=== PATIENT | male | born 1980 | race Two or more races ===

== ENCOUNTER 2018-11-07 22:30 | Emergency (ER) | payer MEDICAID ==
[2018-11-07 22:37] VITALS: BP 139/100
[2018-11-07] MEDS ORDERED: OLANZapine ZYDIS ODT 5MG TABDP PO ONE (22:45)
[2018-11-07] MEDS ORDERED: GABA-490 PO (22:45)
[2018-11-07] MEDS ORDERED: OLAN10TA21 PO (22:45)
[2018-11-07] MEDS ORDERED: BUPR-474 PO (22:45)
--- NOTE | 2018-11-07 22:53 | ER Report ---
History and Physical Time Seen By MD: 22:30 Hx. of Stated Complaint: PT REPORTS HAS BEEN OFF OF HIS MEDICATIONS FOR A COUPLE OF DAYS. PT HAVING VISUAL AND AUDITORY HALLUCINATIONS. HPI/ROS CHIEF COMPLAINT: I'm paranoid and hearing voices HISTORY OF PRESENT ILLNESS: PT state that he has a 10 year hx of bipolar and schizoaffective disorder. Pt states that he has been off his medications. Took his last zyprexa a few nights ago. Has not had his neurontin and was off his welbutrin for a week but found one pill and took it today. PT states he feels very paranoid. Pt admits to hearing whispers that he can not recognize. Does not feel safe. Does not have a suicidal or homicidal plan. Pt admits to abuse of alcohol, cocaine and meth in the past. Last use of meth and cocaine was a week or so ago. Pt is from [place] but lives here now. Pt had a therapist but not local. Came her for help REVIEW OF SYSTEMS: Constitutional:no fevers Eyes: No discharge. ENT: No sore throat. Cardiovascular: No chest pain, no palpitations. Respiratory: No cough, no shortness of breath. Gastrointestinal: No abdominal pain, no vomiting. Genitourinary: No hematuria. Musculoskeletal: No back pain. Skin: No rashes. Neurological: No headache. Psych: + paranoid, aggitated Allergies: Coded Allergies: No Known Drug Allergies (Unverified , 11/07/18) Home Meds Reported Medications Gabapentin (NEURONTIN) 300 Mg Capsule, 600 MG PO TID, CAPSULE 11/07/18 Bupropion Hcl (WELLBUTRIN XL) 300 Mg Tab.er.24h, 300 MG PO QDAY, TAB 11/07/18 Olanzapine (ZYPREXA) 10 Mg Tablet, 10 MG PO HS 11/07/18 Past Medical/Surgical History Pmhx: schizoaffective, bipolar Pshx; no contribuitory Unable To Obtain Past Medical: Refused Reviewed Nurses Notes: Yes Hx Smoking: No Hx Substance Use Disorder: Yes (meth and cocaine) Hx Alcohol Use: Yes Constitutional Vital Sign - Last 24 Hours 11/07/18 22:37 Temp 99.7 Pulse 111 Resp 16 B/P (MAP) 139/100 Pulse Ox 97 O2 Delivery Room Air Physical Exam General Appearance: The patient is alert, has no immediate need for airway protection, pacing around room Eyes: Pupils equal and round no pallor or injection, EOMI ENT: no pharyngeal erythema or exudates, Mucous membranes are moist Respiratory: There are no retractions, lungs are clear to auscultation. Cardiovascular: Regular rate and rhythm. pulses are equal and symmetrical Gastrointestinal: Abdomen is soft and non tender, no masses, bowel sounds normal, no guarding, no rigidity or rebound Neurological: Cranial nerves II-XII grossly intact, no sensory or motor loss Skin: Warm and dry, no rashes. Musculoskeletal: Neck is supple non tender, no vertebral tenderness Extremities are nontender, non swollen and have full range of motion. Psych: anxious DIFFERENTIAL DIAGNOSIS: After history and physical exam differential diagnosis was considered for medication non compliance, substance abuse, paranoid schizoaffective Medical Decision Making Data Points Result Diagram: 11/07/185 11/07/185 Laboratory Hematology Test 11/07/18 22:39 11/07/18 22:55 Urine Color Colorless Urine Clarity Clear Urine pH 6.0 pH (4.8-9.5) Urine Specific [place] 1.001 Urine Protein Negative mg/dL (NEGATIVE) Urine Glucose (UA) Negative mg/dL (NEGATIVE) Urine Ketones Negative mg/dL (NEGATIVE) Urine Blood Negative (NEGATIVE) Urine Nitrite Negative (NEGATIVE) Urine Bilirubin Negative (NEGATIVE) Urine Urobilinogen Negative mg/dL (0.2-1.9) Urine Leukocyte Esterase Negative (NEGATIVE) Urine RBC None /HPF (0-2/HPF) Urine WBC <1 /HPF (0-5/HPF) Urine Squamous Epithelial Cells None /LPF (</=FEW) Urine Bacteria Negative /HPF (NONE-FEW) Urine Mucus None /HPF (NONE-FEW) Red Blood Count 4.78 M/uL (4.00-5.60) Mean Corpuscular Volume 95.8 fL (80.0-96.0) Mean Corpuscular Hemoglobin 33.1 pg (26.0-33.0) Mean Corpuscular Hemoglobin Concent 34.6 g/dL (32.0-36.0) Red Cell Distribution Width 14.1 % (11.5-14.5) Mean Platelet Volume 9.4 fL (7.2-11.1) Neutrophils (%) (Auto) 61.6 % (39.4-72.5) Lymphocytes (%) (Auto) 29.8 % (17.6-49.6) Monocytes (%) (Auto) 6.6 % (4.1-12.4) Eosinophils (%) (Auto) 0.9 % (0.4-6.7) Basophils (%) (Auto) 1.1 % (0.3-1.4) Nucleated RBC Relative Count (auto) 0.1 /100WBC Neutrophils # (Auto) 5.6 K/uL (2.0-7.4) Lymphocytes # (Auto) 2.7 K/uL (1.3-3.6) Monocytes # (Auto) 0.6 K/uL (0.3-1.0) Eosinophils # (Auto) 0.1 K/uL (0.0-0.5) Basophils # (Auto) 0.1 K/uL (0.0-0.1) Nucleated RBC Absolute Count (auto) 0.01 K/uL Sodium Level 133 mmol/L (137-145) Potassium Level 3.3 mmol/L (3.5-5.0) Chloride Level 100 mmol/L (98-107) Carbon Dioxide Level 22 mmol/L (22-30) Blood Urea Nitrogen 11 mg/dl (9-21) Creatinine 0.80 mg/dl (0.66-1.25) Glomerular Filtration Rate Calc > 60.0 Random Glucose 97 mg/dl (75-110) Calcium Level 9.2 mg/dl (8.4-10.2) Magnesium Level 1.6 mg/dl (1.7-2.2) Total Bilirubin 0.6 mg/dl (0.2-1.3) Aspartate Amino Transf (AST/SGOT) 33 U/L (0-35) Alanine Aminotransferase (ALT/SGPT) 44 U/L (0-56) Alkaline Phosphatase 75 U/L (0-126) Total Protein 7.4 g/dl (6.3-8.2) Albumin 4.6 g/dl (3.5-5.0) Salicylates Level < 10 mg/L Salicylate Last Dose Date unknown Urine Opiates Screen Negative Acetaminophen Level < 10 ug/ml Urine Barbiturates Screen Negative Ur Tricyclic Antidepressants Screen Negative Urine Phencyclidine Screen Negative Urine Amphetamines Screen Negative Urine Benzodiazepines Screen Negative Urine Cocaine Screen Negative Urine Cannabinoids Screen Negative Serum Alcohol < 10 mg/dl Chemistry Test 11/07/18 22:39 11/07/18 22:55 Urine Color Colorless Urine Clarity Clear Urine pH 6.0 pH (4.8-9.5) Urine Specific [place] 1.001 Urine Protein Negative mg/dL (NEGATIVE) Urine Glucose (UA) Negative mg/dL (NEGATIVE) Urine Ketones Negative mg/dL (NEGATIVE) Urine Blood Negative (NEGATIVE) Urine Nitrite Negative (NEGATIVE) Urine Bilirubin Negative (NEGATIVE) Urine Urobilinogen Negative mg/dL (0.2-1.9) Urine Leukocyte Esterase Negative (NEGATIVE) Urine RBC None /HPF (0-2/HPF) Urine WBC <1 /HPF (0-5/HPF) Urine Squamous Epithelial Cells None /LPF (</=FEW) Urine Bacteria Negative /HPF (NONE-FEW) Urine Mucus None /HPF (NONE-FEW) White Blood Count 9.1 k/uL (4.5-11.0) Red Blood Count 4.78 M/uL (4.00-5.60) Hemoglobin 15.8 g/dL (14.0-18.0) Hematocrit 45.8 % (42.0-52.0) Mean Corpuscular Volume 95.8 fL (80.0-96.0) Mean Corpuscular Hemoglobin 33.1 pg (26.0-33.0) Mean Corpuscular Hemoglobin Concent 34.6 g/dL (32.0-36.0) Red Cell Distribution Width 14.1 % (11.5-14.5) Platelet Count 120 K/uL (150-450) Mean Platelet Volume 9.4 fL (7.2-11.1) Neutrophils (%) (Auto) 61.6 % (39.4-72.5) Lymphocytes (%) (Auto) 29.8 % (17.6-49.6) Monocytes (%) (Auto) 6.6 % (4.1-12.4) Eosinophils (%) (Auto) 0.9 % (0.4-6.7) Basophils (%) (Auto) 1.1 % (0.3-1.4) Nucleated RBC Relative Count (auto) 0.1 /100WBC Neutrophils # (Auto) 5.6 K/uL (2.0-7.4) Lymphocytes # (Auto) 2.7 K/uL (1.3-3.6) Monocytes # (Auto) 0.6 K/uL (0.3-1.0) Eosinophils # (Auto) 0.1 K/uL (0.0-0.5) Basophils # (Auto) 0.1 K/uL (0.0-0.1) Nucleated RBC Absolute Count (auto) 0.01 K/uL Glomerular Filtration Rate Calc > 60.0 Calcium Level 9.2 mg/dl (8.4-10.2) Magnesium Level 1.6 mg/dl (1.7-2.2) Total Bilirubin 0.6 mg/dl (0.2-1.3) Aspartate Amino Transf (AST/SGOT) 33 U/L (0-35) Alanine Aminotransferase (ALT/SGPT) 44 U/L (0-56) Alkaline Phosphatase 75 U/L (0-126) Total Protein 7.4 g/dl (6.3-8.2) Albumin 4.6 g/dl (3.5-5.0) Salicylates Level < 10 mg/L Salicylate Last Dose Date unknown Urine Opiates Screen Negative Acetaminophen Level < 10 ug/ml Urine Barbiturates Screen Negative Ur Tricyclic Antidepressants Screen Negative Urine Phencyclidine Screen Negative Urine Amphetamines Screen Negative Urine Benzodiazepines Screen Negative Urine Cocaine Screen Negative Urine Cannabinoids Screen Negative Serum Alcohol < 10 mg/dl Toxicology Test 11/07/18 22:55 Salicylates Level < 10 mg/L Salicylate Last Dose Date unknown Urine Opiates Screen Negative Acetaminophen Level < 10 ug/ml Urine Barbiturates Screen Negative Ur Tricyclic Antidepressants Screen Negative Urine Phencyclidine Screen Negative Urine Amphetamines Screen Negative Urine Benzodiazepines Screen Negative Urine Cocaine Screen Negative Urine Cannabinoids Screen Negative Serum Alcohol < 10 mg/dl Urinalysis Test 11/07/18 22:39 Urine Color Colorless Urine Clarity Clear Urine pH 6.0 pH (4.8-9.5) Urine Specific [place] 1.001 Urine Protein Negative mg/dL (NEGATIVE) Urine Glucose (UA) Negative mg/dL (NEGATIVE) Urine Ketones Negative mg/dL (NEGATIVE) Urine Blood Negative (NEGATIVE) Urine Nitrite Negative (NEGATIVE) Urine Bilirubin Negative (NEGATIVE) Urine Urobilinogen Negative mg/dL (0.2-1.9) Urine Leukocyte Esterase Negative (NEGATIVE) Urine RBC None /HPF (0-2/HPF) Urine WBC <1 /HPF (0-5/HPF) Urine Squamous Epithelial Cells None /LPF (</=FEW) Urine Bacteria Negative /HPF (NONE-FEW) Urine Mucus None /HPF (NONE-FEW) ED Course/Re-evaluation ED Course Check labs, medicate and have bhs come down to see pt 11/07/2018 11:22:03 pm Pts magnesium and potassium are low, will replace. S is here to speak with pt. Pt is medically cleared for psych 11/07/2018 11:48:[address] Worthington accepts pt. Pt signed in voluntarily Decision to Disposition Date: Nov 07, 2018 Decision to Disposition Time: 23:48 Depart Departure Latest Vital Signs Vital Signs Date Time Temp Pulse Resp B/P (MAP) Pulse Ox O2 Delivery O2 Flow Rate FiO2 11/07/18 22:37 99.7 111 16 139/100 97 Room Air Impression: Primary Impression: Paranoid schizophrenia Additional Impressions: Nonadherence to medication Hypomagnesemia Hypokalemia Condition: Condition Unchanged Disposition: XFER TO [facility] Problem Qualifiers EDUARDO STILL DO Nov 07, 2018 22:53
[2018-11-07 23:07] LABS: PLATELET COUNT, AUTOMATED 120 K/uL (150-450)
[2018-11-07] MEDS ORDERED: MAGNESIUM OXIDE 400 MG TAB PO ONE (23:20)
[2018-11-07] MEDS ORDERED: POTASSIUM CHL 20 MEQ TABCR PO ONE (23:20)
[2018-11-07] MEDS ORDERED: LORazepam 1 MG TAB PO ONE (23:40)
[2018-11-09] MEDS ORDERED: BUPR-474 PO (11:12)
== END 2018-11-08 00:08 ==
LOC: ER 22:35
DX: F20.0 Paranoid schizophrenia (principal); E83.42 Hypomagnesemia; E87.6 Hypokalemia; T43.596A Underdosing of other antipsychotics and neuroleptics, initial encounter; F15.90 Other stimulant use, unspecified, uncomplicated; F14.90 Cocaine use, unspecified, uncomplicated
CPT/HCPCS: 36415; 80305; 81001; 83735; 84443; 85025; 99283; G0480; 80320; 80329; 82040; 82247; 82310; 82374; 82435; 82565; 82947; 84075; 84132; 84155; 84295; 84450; 84460; 84520

== ENCOUNTER 2018-11-07 23:47 | Inpatient (IN) | payer MEDICAID ==
[~2018-11-07 23:47] MED LIST: BUPR-474 PO; GABA-490 PO; OLAN10TA21 PO
[2018-11-08 00:15] VITALS: BP 138/89
[2018-11-08] MEDS ORDERED: ACETAMINOPHEN 325 MG TAB PO PRN (05:10)
[2018-11-08] MEDS ORDERED: MAG HYD/AL HYD/SIMETH 30ML UDC PO PRN (05:10)
[2018-11-08] MEDS ORDERED: LORazepam 1 MG TAB PO PRN (05:10)
[2018-11-08] MEDS ORDERED: NICOTINE INH SYSTEM 10 MG/INH INH PRN (05:10)
[2018-11-08] MEDS: MULTIVITAMINS PO SCH (08:28)
[2018-11-08] MEDS ORDERED: LORazepam 1 MG TAB PO ONE (11:00)
[2018-11-08] MEDS ORDERED: GABAPENTIN 300 MG CAP PO ONE (11:00)
[2018-11-08] MEDS ORDERED: OLANZapine 5 MG TAB PO ONE (11:00)
[2018-11-08] MEDS ORDERED: OLANZapine 5 MG TAB PO SCH (21:00)
[2018-11-08] MEDS: GABAPENTIN 300 MG CAP PO SCH (21:00)
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
[2018-11-08 22:18] VITALS: BP 131/89
[2018-11-09 06:55] VITALS: BP 123/84
[2018-11-09] MEDS: GABAPENTIN 300 MG CAP PO SCH (08:51)
[2018-11-09] MEDS: MULTIVITAMINS PO SCH (08:51)
[2018-11-09] MEDS ORDERED: buPROPion XL 150 MG TABCR PO SCH (09:00)
[2018-11-09] MEDS ORDERED: BUPR-474 PO (11:12)
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
== END 2018-11-09 11:39 | disposition home or self-care (01) | DRG 885 ==
LOC: BHS 23:47
PROVIDERS: ADMIT Psychiatry & Neurology Psychiatry; ATTEND Psychiatry & Neurology Psychiatry
DX: F25.0 Schizoaffective disorder, bipolar type (principal); F15.20 Other stimulant dependence, uncomplicated; F14.20 Cocaine dependence, uncomplicated; F10.20 Alcohol dependence, uncomplicated; Y90.0 Blood alcohol level of less than 20 mg/100 ml; Z91.14 Patient's other noncompliance with medication regimen; Z91.5 Personal history of self-harm

== ENCOUNTER 2018-11-17 14:20 | Emergency (ER) | payer MEDICAID ==
[2018-11-17 14:24] VITALS: BP 95/77
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
[2018-11-18] MEDS ORDERED: BUPR-474 PO (10:36)
[2018-11-18] MEDS ORDERED: OLAN10TA21 PO (10:36)
== END 2018-11-17 15:04 ==
LOC: ER 14:37 → MERGE 14:37 → ER 15:04
DX: F10.920 Alcohol use, unspecified with intoxication, uncomplicated (principal); F32.9 Major depressive disorder, single episode, unspecified
CPT/HCPCS: 99281

== ENCOUNTER 2018-11-18 10:24 | Emergency (ER) | payer MEDICAID ==
[~2018-11-18 10:24] MED LIST changes: -NIC10R INH; -NICOTROL CARTRIDGE PO; -OLAN15TA19 PO
--- NOTE | 2018-11-18 10:32 | ER Report ---
History and Physical Time Seen By : 10:31 HPI/MARCO CHIEF COMPLAINT: Alcohol withdrawal HISTORY OF PRESENT ILLNESS: He was initially seen yesterday for police clearance for halfway. Patient was at a truck stop and apparently was irritating customers and when asked to leave he did not the police was called. He was not cooperative and arrested. He was brought to the emergency department yesterday for clearance due to alcohol intoxication. Patient admits to history of depression. Patient states that he drinks to help control symptoms of his bipolar disorder as he is off all of his medications. He states that he voluntarily wants to come in for alcohol treatment. He currently denies any suicidal ideation or homicidal ideation. REVIEW OF SYSTEMS: Constitutional: No fever, no chills. Eyes: No discharge. ENT: No sore throat. Cardiovascular: No chest pain, no palpitations. Respiratory: No cough, no shortness of breath. Gastrointestinal: No abdominal pain, no vomiting. Genitourinary: No hematuria. Musculoskeletal: No back pain. Skin: No rashes. Neurological: No headache. Allergies: Coded Allergies: No Known Drug Allergies (Unverified , 11/18/18) Home Meds Reported Medications Olanzapine (ZYPREXA) 10 Mg Tablet, 10 MG PO QDAY 11/18/18 Bupropion Hcl (WELLBUTRIN XL) 300 Mg Tab.er.24h, 300 MG PO QDAY, TAB 11/18/18 Past Medical/Surgical History History of depression; history of alcohol abuse, history of bipolar disorder Hx Smoking: Yes Hx Alcohol Use: Yes Constitutional Vital Sign - Last 24 Hours 11/18/18 11/18/18 11/18/18 11/18/18 10:24 10:26 10:27 10:30 Temp 98.0 Pulse 82 77 Resp 20 B/P (MAP) 135/91 (106) 135/91 131/97 (108) Pulse Ox 95 O2 Delivery Room Air 11/18/18 11/18/18 11/18/18 11/18/18 10:44 11:00 11:04 11:24 Pulse 92 94 103 Resp 10 20 12 B/P (MAP) 131/99 (110) Pulse Ox 95 92 93 11/18/18 11/18/18 11/18/18 11/18/18 11:30 11:44 12:00 12:04 Pulse 101 90 Resp 20 19 B/P (MAP) 118/79 (92) 120/79 (93) Pulse Ox 96 94 11/18/18 11/18/18 11/18/18 12:09 12:29 12:30 Pulse 112 83 Resp 15 23 B/P (MAP) 115/71 (86) Pulse Ox 93 Physical Exam General Appearance: The patient is alert, has no immediate need for airway protection and no signs of toxicity. Eyes: Pupils equal and round no pallor or injection. ENT, Mouth: Mucous membranes are moist. Respiratory: There are no retractions, lungs are clear to auscultation. Cardiovascular: Regular rate and rhythm. Gastrointestinal: Abdomen is soft and non tender, no masses, bowel sounds normal. Neurological: Awake and alert, anxious appearing Skin: Warm and dry, no rashes. Musculoskeletal: Neck is supple non tender. Extremities are nontender, nonswollen and have full range of motion. Psychiatric: No suicidal or homicidal ideation, thought process is logical and goal-directed Medical Decision Making Data Points Result Diagram: 11/18/18 1048 11/18/18 1048 Laboratory Hematology Test 11/18/18 10:39 11/18/18 10:48 Urine Color Yellow Urine Clarity Clear Urine pH 7.0 pH (4.8-9.5) Urine Specific [place] 1.019 Urine Protein Negative mg/dL (NEGATIVE) Urine Glucose (UA) Negative mg/dL (NEGATIVE) Urine Ketones Negative mg/dL (NEGATIVE) Urine Blood Negative (NEGATIVE) Urine Nitrite Negative (NEGATIVE) Urine Bilirubin Negative (NEGATIVE) Urine Urobilinogen 4.0 mg/dL (0.2-1.9) Urine Leukocyte Esterase Negative (NEGATIVE) Urine RBC <1 /HPF (0-2/HPF) Urine WBC <1 /HPF (0-5/HPF) Urine Squamous Epithelial Cells Few /LPF (</=FEW) Urine Bacteria Negative /HPF (NONE-FEW) Urine Mucus None /HPF (NONE-FEW) Urine Opiates Screen Negative Urine Barbiturates Screen Negative Ur Tricyclic Antidepressants Screen Negative Urine Phencyclidine Screen Negative Urine Amphetamines Screen Negative Urine Benzodiazepines Screen Negative Urine Cocaine Screen Negative Urine Cannabinoids Screen Negative Red Blood Count 4.92 M/uL (4.00-5.60) Mean Corpuscular Volume 95.4 fL (80.0-96.0) Mean Corpuscular Hemoglobin 33.1 pg (26.0-33.0) Mean Corpuscular Hemoglobin Concent 34.7 g/dL (32.0-36.0) Red Cell Distribution Width 13.7 % (11.5-14.5) Mean Platelet Volume 8.8 fL (7.2-11.1) Neutrophils (%) (Auto) 51.8 % (39.4-72.5) Lymphocytes (%) (Auto) 35.5 % (17.6-49.6) Monocytes (%) (Auto) 10.5 % (4.1-12.4) Eosinophils (%) (Auto) 1.9 % (0.4-6.7) Basophils (%) (Auto) 0.3 % (0.3-1.4) Nucleated RBC Relative Count (auto) 0.0 /100WBC Neutrophils # (Auto) 4.0 K/uL (2.0-7.4) Lymphocytes # (Auto) 2.8 K/uL (1.3-3.6) Monocytes # (Auto) 0.8 K/uL (0.3-1.0) Eosinophils # (Auto) 0.1 K/uL (0.0-0.5) Basophils # (Auto) 0.0 K/uL (0.0-0.1) Nucleated RBC Absolute Count (auto) 0.00 K/uL Sodium Level 139 mmol/L (137-145) Potassium Level 3.4 mmol/L (3.5-5.0) Chloride Level 104 mmol/L (98-107) Carbon Dioxide Level 26 mmol/L (22-30) Blood Urea Nitrogen 10 mg/dl (9-21) Creatinine 0.80 mg/dl (0.66-1.25) Glomerular Filtration Rate Calc > 60.0 Random Glucose 101 mg/dl (75-110) Calcium Level 9.2 mg/dl (8.4-10.2) Magnesium Level 1.3 mg/dl (1.7-2.2) Total Bilirubin 1.0 mg/dl (0.2-1.3) Aspartate Amino Transf (AST/SGOT) 43 U/L (0-35) Alanine Aminotransferase (ALT/SGPT) 40 U/L (0-56) Alkaline Phosphatase 62 U/L (0-126) Total Protein 7.3 g/dl (6.3-8.2) Albumin 4.5 g/dl (3.5-5.0) Thyroid Stimulating Hormone (TSH) 0.23 uIU/ml (0.46-4.68) Salicylates Level < 10 mg/L Salicylate Last Dose Date unk Acetaminophen Level < 10 ug/ml Serum Alcohol < 10 mg/dl Chemistry Test 11/18/18 10:39 11/18/18 10:48 Urine Color Yellow Urine Clarity Clear Urine pH 7.0 pH (4.8-9.5) Urine Specific [place] 1.019 Urine Protein Negative mg/dL (NEGATIVE) Urine Glucose (UA) Negative mg/dL (NEGATIVE) Urine Ketones Negative mg/dL (NEGATIVE) Urine Blood Negative (NEGATIVE) Urine Nitrite Negative (NEGATIVE) Urine Bilirubin Negative (NEGATIVE) Urine Urobilinogen 4.0 mg/dL (0.2-1.9) Urine Leukocyte Esterase Negative (NEGATIVE) Urine RBC <1 /HPF (0-2/HPF) Urine WBC <1 /HPF (0-5/HPF) Urine Squamous Epithelial Cells Few /LPF (</=FEW) Urine Bacteria Negative /HPF (NONE-FEW) Urine Mucus None /HPF (NONE-FEW) Urine Opiates Screen Negative Urine Barbiturates Screen Negative Ur Tricyclic Antidepressants Screen Negative Urine Phencyclidine Screen Negative Urine Amphetamines Screen Negative Urine Benzodiazepines Screen Negative Urine Cocaine Screen Negative Urine Cannabinoids Screen Negative White Blood Count 7.8 k/uL (4.5-11.0) Red Blood Count 4.92 M/uL (4.00-5.60) Hemoglobin 16.3 g/dL (14.0-18.0) Hematocrit 47.0 % (42.0-52.0) Mean Corpuscular Volume 95.4 fL (80.0-96.0) Mean Corpuscular Hemoglobin 33.1 pg (26.0-33.0) Mean Corpuscular Hemoglobin Concent 34.7 g/dL (32.0-36.0) Red Cell Distribution Width 13.7 % (11.5-14.5) Platelet Count 155 K/uL (150-450) Mean Platelet Volume 8.8 fL (7.2-11.1) Neutrophils (%) (Auto) 51.8 % (39.4-72.5) Lymphocytes (%) (Auto) 35.5 % (17.6-49.6) Monocytes (%) (Auto) 10.5 % (4.1-12.4) Eosinophils (%) (Auto) 1.9 % (0.4-6.7) Basophils (%) (Auto) 0.3 % (0.3-1.4) Nucleated RBC Relative Count (auto) 0.0 /100WBC Neutrophils # (Auto) 4.0 K/uL (2.0-7.4) Lymphocytes # (Auto) 2.8 K/uL (1.3-3.6) Monocytes # (Auto) 0.8 K/uL (0.3-1.0) Eosinophils # (Auto) 0.1 K/uL (0.0-0.5) Basophils # (Auto) 0.0 K/uL (0.0-0.1) Nucleated RBC Absolute Count (auto) 0.00 K/uL Glomerular Filtration Rate Calc > 60.0 Calcium Level 9.2 mg/dl (8.4-10.2) Magnesium Level 1.3 mg/dl (1.7-2.2) Total Bilirubin 1.0 mg/dl (0.2-1.3) Aspartate Amino Transf (AST/SGOT) 43 U/L (0-35) Alanine Aminotransferase (ALT/SGPT) 40 U/L (0-56) Alkaline Phosphatase 62 U/L (0-126) Total Protein 7.3 g/dl (6.3-8.2) Albumin 4.5 g/dl (3.5-5.0) Thyroid Stimulating Hormone (TSH) 0.23 uIU/ml (0.46-4.68) Salicylates Level < 10 mg/L Salicylate Last Dose Date unk Acetaminophen Level < 10 ug/ml Serum Alcohol < 10 mg/dl Toxicology Test 11/18/18 10:39 11/18/18 10:48 Urine Opiates Screen Negative Urine Barbiturates Screen Negative Ur Tricyclic Antidepressants Screen Negative Urine Phencyclidine Screen Negative Urine Amphetamines Screen Negative Urine Benzodiazepines Screen Negative Urine Cocaine Screen Negative Urine Cannabinoids Screen Negative Salicylates Level < 10 mg/L Salicylate Last Dose Date unk Acetaminophen Level < 10 ug/ml Serum Alcohol < 10 mg/dl Urinalysis Test 11/18/18 10:39 Urine Color Yellow Urine Clarity Clear Urine pH 7.0 pH (4.8-9.5) Urine Specific [place] 1.019 Urine Protein Negative mg/dL (NEGATIVE) Urine Glucose (UA) Negative mg/dL (NEGATIVE) Urine Ketones Negative mg/dL (NEGATIVE) Urine Blood Negative (NEGATIVE) Urine Nitrite Negative (NEGATIVE) Urine Bilirubin Negative (NEGATIVE) Urine Urobilinogen 4.0 mg/dL (0.2-1.9) Urine Leukocyte Esterase Negative (NEGATIVE) Urine RBC <1 /HPF (0-2/HPF) Urine WBC <1 /HPF (0-5/HPF) Urine Squamous Epithelial Cells Few /LPF (</=FEW) Urine Bacteria Negative /HPF (NONE-FEW) Urine Mucus None /HPF (NONE-FEW) ED Course/Re-evaluation ED Course CWIA score is 16. Given IV Ativan for treatment of symptoms. Decision to Disposition Date: November 18, 2018 Decision to Disposition Time: 12:23 Depart Departure Latest Vital Signs Vital Signs Date Time Temp Pulse Resp B/P (MAP) Pulse Ox O2 Delivery O2 Flow Rate FiO2 11/18/18 12:30 115/71 (86) 11/18/18 12:29 83 23 93 11/18/18 10:27 98.0 Room Air Impression: Primary Impression: Alcohol withdrawal Condition: Improved Disposition: XFER TO [facility] (to dr Vaca) Problem Qualifiers Primary Impression: Alcohol withdrawal Complication of substance-induced condition: uncomplicated Qualified Codes: F10.230 - Alcohol dependence with withdrawal, uncomplicated JAZMIN EVANS MD November 18, 2018 10:32
[2018-11-18] MEDS ORDERED: BUPR-474 PO (10:36)
[2018-11-18] MEDS ORDERED: OLAN10TA21 PO (10:36)
[2018-11-18 10:55] LABS: PLATELET COUNT, AUTOMATED 155 K/uL (150-450)
[2018-11-18] MEDS ORDERED: LORazepam 2 MG/ML VIAL IVP ONE (10:55)
[2018-11-18] MEDS ORDERED: MAGNESIUM SUL/D5W* 1 GM/100 ML 100 ML IVPB ONE (12:15)
[2018-11-18 12:30] VITALS: BP 115/71
== END 2018-11-18 12:55 ==
LOC: MERGE 10:31 → ER 10:31
DX: F10.230 Alcohol dependence with withdrawal, uncomplicated (principal)
CPT/HCPCS: 80305; 81001; 83735; 84443; 85025; 96365; 96375; 99284; G0480; J2060; J3475; 80320; 80329; 82040; 82247; 82310; 82374; 82435; 82565; 82947; 84075; 84132; 84155; 84295; 84450; 84460; 84520

== ENCOUNTER 2018-11-18 13:18 | Inpatient (IN) | payer MEDICAID ==
[~2018-11-18] VITALS: Ht 162.6 cm; Wt 82.6 kg
[2018-11-18 13:00] VITALS: BP 128/82
[2018-11-18] MEDS ORDERED: WATER STERILE 10 ML VIAL IM ONLY PRN (15:20)
[2018-11-18] MEDS ORDERED: OLANZapine 10 MG VIAL IM ONLY PRN (15:20)
[2018-11-18] MEDS ORDERED: NICOTINE CARTRIDGE 1 EA PO PRN (15:20)
[2018-11-18] MEDS ORDERED: DIAZEPAM 10 MG TAB PO PRN (15:20)
[2018-11-18] MEDS ORDERED: ACETAMINOPHEN 325 MG TAB PO PRN (15:20)
[2018-11-18] MEDS ORDERED: MAG HYD/AL HYD/SIMETH 30ML UDC PO PRN (15:20)
[2018-11-18] MEDS ORDERED: OLANZapine 5 MG TAB PO PRN (15:20)
[2018-11-18] MEDS ORDERED: NICOTINE INH SYSTEM 10 MG/INH INH PRN (15:20)
[2018-11-18] MEDS ORDERED: buPROPion XL 150 MG TABCR PO SCH (15:30)
[2018-11-18] MEDS ORDERED: LOPERAMIDE HCL 2 MG CAP PO ONE (16:00)
[2018-11-18] MEDS ORDERED: LOPERAMIDE HCL 2 MG CAP PO PRN (16:00)
--- NOTE | 2018-11-18 17:15 | NUR ---
pt discharged via AMA stating he needed to get back to [place] where he lives. Had been staying at [facility]. He called them to bring his belongings to [facility]. Pt planned to go Truck stop to hitch a ride. He was asked if he wanted to stay one more day to get organized. He stated no I want to go to [place]. Pt was discharged AMA per Dr Worthington.
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
[2018-11-18] MEDS ORDERED: OLANZapine 5 MG TAB PO SCH (21:00)
[2018-11-19] MEDS ORDERED: THIAMINE HCL 100 MG TAB PO SCH (09:00)
[2018-11-19] MEDS ORDERED: MULTIVITAMINS PO SCH (09:00)
[2018-11-19] MEDS ORDERED: FOLIC ACID 1 MG TAB PO SCH (09:00)
== END 2018-11-18 18:15 | disposition left against medical advice (07) | DRG 885 ==
LOC: MERGE 13:18 → BHS 13:18
PROVIDERS: ADMIT Psychiatry & Neurology Psychiatry; ATTEND Psychiatry & Neurology Psychiatry
DX: F25.0 Schizoaffective disorder, bipolar type (principal); F10.230 Alcohol dependence with withdrawal, uncomplicated; F15.10 Other stimulant abuse, uncomplicated; F14.10 Cocaine abuse, uncomplicated; Y90.0 Blood alcohol level of less than 20 mg/100 ml; Z91.419 Personal history of unspecified adult abuse; Z53.29 Procedure and treatment not carried out because of patient's decision for other reasons
CPT/HCPCS: 36415; 84481; 86580

== ENCOUNTER 2018-11-18 22:34 | Emergency (ER) | payer MEDICAID ==
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
[2018-11-18 22:59] LABS: PLATELET COUNT, AUTOMATED 145 K/uL (150-450)
[2018-11-18 23:00] VITALS: BP 131/89
[2018-11-18] MEDS ORDERED: DIAZEPAM 10 MG TAB PO ONE (23:05)
== END 2018-11-19 00:14 ==
LOC: ER 22:43
DX: F20.0 Paranoid schizophrenia (principal); R45.851 Suicidal ideations; E87.1 Hypo-osmolality and hyponatremia; E87.6 Hypokalemia; E83.42 Hypomagnesemia
CPT/HCPCS: 36415; 80305; 81001; 83735; 84443; 85025; 99284; G0480; 80320; 80329; 82040; 82247; 82310; 82374; 82435; 82565; 82947; 84075; 84132; 84155; 84295; 84450; 84460; 84520

== ENCOUNTER → 2018-11-18 | Outpatient (CLI) | payer MEDICAID ==
[~2018-11-18] MED LIST changes: +NIC10R INH; +NICOTROL CARTRIDGE PO; +OLAN15TA19 PO
== END ==
LOC: MERGE 10:13 → AMB 10:13
PROVIDERS: ATTEND Nurse Practitioner
DX: F10.239 Alcohol dependence with withdrawal, unspecified (principal); R06.03 Acute respiratory distress
CPT/HCPCS: A0425; A0429

== ENCOUNTER 2018-11-19 00:07 | Inpatient (IN) | payer MEDICAID, OTHER ==
[~2018-11-19] VITALS: Ht 157.5 cm; Wt 79.4 kg
[2018-11-19] MEDS ORDERED: MAG HYD/AL HYD/SIMETH 30ML UDC PO PRN (00:15)
[2018-11-19] MEDS ORDERED: ACETAMINOPHEN 325 MG TAB PO PRN (00:15)
[2018-11-19] MEDS ORDERED: NICOTINE INH SYSTEM 10 MG/INH INH PRN (00:25)
[2018-11-19 00:57] VITALS: BP 119/76
[2018-11-19] MEDS: MULTIVITAMINS TAB PO SCH (08:26)
[2018-11-19] MEDS: buPROPion IR 100 MG TAB PO SCH (08:26)
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
[2018-11-19] MEDS ORDERED: OLANZapine 10 MG VIAL IM ONLY PRN (11:55)
[2018-11-19] MEDS ORDERED: WATER STERILE 10 ML VIAL IM ONLY PRN (11:55)
[2018-11-19] MEDS ORDERED: diphenhydrAMINE 50 MG/ML VIAL IM PRN (11:55)
[2018-11-19] MEDS ORDERED: LORazepam 2 MG/ML VIAL IM PRN (11:55)
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
[2018-11-19] MEDS: OLANZapine 5 MG TAB PO SCH (20:23)
[2018-11-20] MEDS: buPROPion IR 100 MG TAB PO SCH (08:06)
[2018-11-20] MEDS: MULTIVITAMINS TAB PO SCH (08:06)
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
[2018-11-20 13:31] VITALS: BP 130/90
[2018-11-20] MEDS ORDERED: NICOTINE CARTRIDGE 1 EA PO PRN (19:05)
[2018-11-20] MEDS: OLANZapine 5 MG TAB PO SCH (20:54)
[2018-11-21 05:06] VITALS: BP 133/94
[2018-11-21] MEDS: MULTIVITAMINS TAB PO SCH (08:38)
[2018-11-21] MEDS: buPROPion IR 100 MG TAB PO SCH (08:38)
--- NOTE | 2018-11-21 20:11 | BHS Progress Note ---
S - Subjective Progress Notes Subjective Pt seen in treatment team, he is apologizing for his behavior this weekend, saying he was not appropriate and should have controlled himself better-- He is calm today, slept well, says SI "isn't too bad, just some thoughts now and then." Still has AH of whispering voices, denies command hallucinations. We discussed him going to rehab and will look at [facility] program in [place]. Pt tolerating medications well without oversedation-- will continue current tx plan. Suicidal Ideation: Resolving Homicidal Ideation: None S - Objective Physical Exam Vital Signs Vital Signs 11/19/18 11/21/18 00:57 05:06 Temp 99.3 Pulse 103 Resp 15 B/P (MAP) 133/94 (107) Pulse Ox 96 O2 Delivery Room Air Muscle Strength and Tone: WNL Gait and Station: Steady [facility] Medications Reviewed: Side Effects, Benefits of Medication, Risks Allergies Reviewed: Yes Mental Status Exam General Appearance: Casual, Good Eye Contact, Cooperative, Polite Speech: Clear, Spontaneous, Rambling Mood: Other (labile) Affect: Anxious Thought Process: Other (circumstantial) Thought Content: Suicidal Ideation (resolving); No Homicidal Ideation, No Delusions; Auditory Halllucinations (whispers); No Visual Hallucinations, No Thought Broadcasting, No Ideas of Reference, No Obsessions, No Compulsions Sensorium: Clear Cognition: Alert & Oriented-Person, Alert & Oriented-Place, Alert & Oriented- Time, Nvlbk-Mxpwrykv-Jdacgnejl Memory: Immediate, Recent, Remote Intelligence: Average Insight Judgment: Fair Result Diagram: 11/19/18 1437 Lab hepatitis panel negative [facility] Assessment and Plan Brfs-uv-Blod Encounter Date: November 21, 2018 Mlyn-[id number] Encounter Time: 08:40 [facility] Plan: Admit to Unit, Necessary Precautions, Individual/Group Therapy, Admin/Titrate Meds, Educate Patient Tobacco Medications: Started Multpiple Antipsychotics Used: No Problems: (1) Schizoaffective disorder, bipolar type Status: Chronic (2) Alcohol use disorder, moderate, dependence Status: Chronic (3) Amphetamine use disorder, moderate Status: Chronic ERICK MORENO MD November 21, 2018 20:10
[2018-11-21] MEDS: OLANZapine 5 MG TAB PO SCH (21:31)
[2018-11-22 05:53] VITALS: BP 129/82
[2018-11-22] MEDS: buPROPion IR 100 MG TAB PO SCH (08:16)
[2018-11-22] MEDS: MULTIVITAMINS TAB PO SCH (08:16)
[2018-11-22] MEDS ORDERED: LORazepam 1 MG TAB PO ONE (13:45)
--- NOTE | 2018-11-22 20:44 | BHS Progress Note ---
S - Subjective Progress Notes Subjective Pt seen in conference room this am with team, at that time he was cooperative, engaging well with us in discussion of possible transfer to in-patient rehab at [facility] in [place]. Then this afternoon around 1:30pm he became acutely agitated after a phone call from his sister who reported his mother was in the hospital in [place] with a brain tumor. Pt was yelling that he had to be discharged NOW, he was pacing, with loud pressured speech, threatening to break the door down, threatening to hit staff. A Adonay Yanez was called, and pt cooperated with walking into Unit C and accepted po Ativan 2mg. He calmed down quickly and was able to discuss his fear about his mother's health. We told him we would not discharge him in escalated, irrational, threatening state.... but he did submit a request for AMA discharge. Will increase standing dose zyprexa to 15 mg q HS for better mood stability. In a.m. if he still wants discharge we will see if we can get him a bus ticket to [place] through [employer]. Suicidal Ideation: None Homicidal Ideation: None [facility] - Objective Physical Exam Vital Signs Vital Signs 11/22/18 05:53 Temp 98.3 Pulse 86 Resp 15 B/P (MAP) 129/82 (98) Pulse Ox 96 O2 Delivery Room Air Muscle Strength and Tone: WNL Gait and Station: Steady [facility] Medications Reviewed: Side Effects, Benefits of Medication, Risks Allergies Reviewed: Yes Mental Status Exam General Appearance: Casual, Good Eye Contact, Cooperative, Psychomotor A gitation, Other (during escalation, yelling, pacing, threatening) Speech: Clear, Spontaneous, Rambling, Other (yelling, pressured) Mood: Hyperthymic, Other (labile) Affect: Tearful, Anxious, Agitated Thought Process: Other (circumstantial) Thought Content: No Suicidal Ideation, No Homicidal Ideation, No Delusions; Auditory Halllucinations (whispers); No Visual Hallucinations, No Thought Broadcasting, No Ideas of Reference, No Obsessions, No Compulsions, No Other Sensorium: Clear Cognition: Alert & Oriented-Person, Alert & Oriented-Place, Alert & Oriented- Time, Kvags-Bohhpqgo-Bpzeleiwt Memory: Immediate, Recent, Remote Intelligence: Average Insight Judgment: Fair Result Diagram: 11/19/18 1437 [facility] Assessment and Plan [id number] Encounter Date: November 22, 2018 Hxri-le-Xfua Encounter Time: 10:00 [facility] Plan: Admit to Unit, Necessary Precautions, Individual/Group Therapy, Admi n/Titrate Meds, Educate Patient Tobacco Medications: Started Multpiple Antipsychotics Used: No Problems: (1) Schizoaffective disorder, bipolar type Status: Chronic (2) Alcohol use disorder, moderate, dependence Status: Chronic (3) Amphetamine use disorder, moderate Status: Chronic ERICK MORENO MD November 22, 2018 20:44
[2018-11-22] MEDS ORDERED: OLANZapine 5 MG TAB PO SCH (21:00)
[2018-11-23 06:13] VITALS: BP 119/90
[2018-11-23] MEDS: MULTIVITAMINS TAB PO SCH (08:10)
[2018-11-23] MEDS: buPROPion IR 100 MG TAB PO SCH (08:11)
[2018-11-23] MEDS ORDERED: OLAN15TA19 PO (09:53)
[2018-11-23] MEDS ORDERED: NIC10R INH (09:55)
[2018-11-23] MEDS ORDERED: NICOTROL CARTRIDGE PO (09:56)
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
== END 2018-11-23 12:35 | disposition home health service (06) | DRG 885 ==
LOC: BHS 00:07
PROVIDERS: ADMIT Nurse Practitioner Psychiatric/Mental Health; ATTEND Nurse Practitioner Psychiatric/Mental Health
DX: F25.0 Schizoaffective disorder, bipolar type (principal); F15.20 Other stimulant dependence, uncomplicated; R45.851 Suicidal ideations; F10.20 Alcohol dependence, uncomplicated; F17.210 Nicotine dependence, cigarettes, uncomplicated; F14.10 Cocaine abuse, uncomplicated; Z62.810 Personal history of physical and sexual abuse in childhood; Z91.410 Personal history of adult physical and sexual abuse; Z91.5 Personal history of self-harm; Z59.0 Homelessness; Z56.0 Unemployment, unspecified; Y90.0 Blood alcohol level of less than 20 mg/100 ml
CPT/HCPCS: 36415; 80074; 82040; 82247; 82310; 82374; 82435; 82565; 82947; 84075; 84132; 84155; 84295; 84450; 84460; 84520; 86703